=== PATIENT | male | born 1990 | race Caucasian/White ===

== ENCOUNTER 2021-09-27 14:51 | Outpatient (CLI) | payer MEDICAID, SELFPAY ==
--- NOTE | 2021-09-27 14:45 | RT.EKG_ITS ---
APPROVED REPORT Exam: Resting ECG Reason for Exam: fainting Patient Location: O HR:72 bpm ECG Measurements Heart Rate 72 AXIS RI 159 P 52 QRSd 95 QRS 58 QT 383 T 20 QTc 421 Conclusion Sinus rhythm...normal P axis, V-rate 60- 99 ST elev, probable normal early repol pattern...ST elevation, age<55 Normal Electrocardiogram
== END 2021-09-27 14:52 | disposition home or self-care (01) ==
LOC: DI.KIM 14:52
PROVIDERS: Visit Provider Internal Medicine
DX: R55 Syncope and collapse (principal)
CPT/HCPCS: 93010

== ENCOUNTER 2022-04-18 03:02 | Outpatient (CLI) | payer MEDICAID, SELFPAY ==
[2022-04-18 08:17] LABS: Bacteria Negative HPF (Negative); Epithelial Cells Few HPF (Negative); RBC 0-2 HPF (0-2); WBC Negative HPF (0-5)
[2022-04-18 08:18] LABS: C & S Indicated? No; Casts Negative LPF (Negative); Crystals Few Amorphous HPF (Negative); Mucus Moderate (Negative)
[2022-04-18 18:49] LABS: PSA, Screening 0.9 ng/mL (<=2.5)
== END 2022-04-18 03:03 | disposition home or self-care (01) ==
LOC: LBO 03:03
PROVIDERS: PCP Student in an Organized Health Care Education/Training Program; Visit Provider Student in an Organized Health Care Education/Training Program
DX: N40.0 Benign prostatic hyperplasia without lower urinary tract symptoms (principal); Q64.9 Congenital malformation of urinary system, unspecified; Z12.5 Encounter for screening for malignant neoplasm of prostate
CPT/HCPCS: 36415; 84153; 81015

== ENCOUNTER 2022-09-05 03:15 | Outpatient (CLI) | payer MEDICAID, SELFPAY ==
[2022-09-05 08:28] LABS: ALT 31 U/L (16-63); AST 20 U/L (15-37); Albumin 4.2 g/dL (3.4-5.0); Alkaline Phosphatase 64 U/L (46-116); Anion Gap 6.9 mmol/L (3-11); BUN 12 mg/dL (7-18); Bilirubin, Total 0.3 mg/dL (0.2-1.0); CO2 28.1 mmol/L (21.0-32.0); Calcium 8.7 mg/dL (8.5-10.1); Chloride 103 mmol/L (98-107); Estimated GFR 103.84 (mL/min/1.73m2); Glucose 98 mg/dL (74-106); Potassium 3.9 mmol/L (3.5-5.1); Sodium 138 mmol/L (136-145); TSH (W/Ref FT4) 1.88 uIU/mL (0.36-3.74); Total Protein 8.1 g/dL (6.4-8.2)
[2022-09-05 08:49] LABS: Calculated LDL 100 mg/dL (<100); Cholesterol 184 mg/dL (<200); HDL Cholesterol 64 mg/dL (40-60); Triglyceride 100 mg/dL (<150)
== END 2022-09-05 03:16 | disposition home or self-care (01) ==
LOC: LBO 03:15
PROVIDERS: PCP Student in an Organized Health Care Education/Training Program; Visit Provider Student in an Organized Health Care Education/Training Program
DX: Z13.220 Encounter for screening for lipoid disorders (principal); E86.0 Dehydration; K76.9 Liver disease, unspecified; Z91.89 Other specified personal risk factors, not elsewhere classified; F32.9 Major depressive disorder, single episode, unspecified; F33.8 Other recurrent depressive disorders; F39 Unspecified mood [affective] disorder
CPT/HCPCS: 36415; 80053; 80061; 84443

== ENCOUNTER 2023-08-02 01:51 | Emergency (ER) | payer MEDICAID, SELFPAY ==
[2023-08-02] VITALS (11 sets, daily range): BP systolic 129–151; BP diastolic 78–89; PULSE 73–88; RESP 10–26; TEMP 36.4; O2SAT 99
--- NOTE | 2023-08-02 01:45 | RT.EKG_ITS ---
APPROVED REPORT Exam: Resting ECG Reason for Exam: chest pain Patient Location: E HR:78 bpm ECG Measurements Heart Rate 78 AXIS TX 160 P 65 QRSd 105 QRS 77 QT 379 T -18 QTc 434 Conclusion Sinus rhythm...normal P axis, V-rate 60- 99
--- NOTE | 2023-08-02 02:00 | DI.RAD_ITS ---
Exam(s) XR PORTABLE CHEST AP EXAM: XR PORTABLE CHEST AP CLINICAL HISTORY: syncope TECHNIQUE: 2D digital imaging was performed. COMPARISON: No exams were available for comparison FINDINGS: The lung apices are: From view. Leads overlie the chest. LUNGS: Gross clear. No pleural abnormality seen. HEART: Normal size. AORTA: Normal diameter. BONES: Unremarkable for age. Soft tissues: Unremarkable. IMPRESSION: No acute findings. DATA REPOSITORY: RADIATION DOSE DELIVERED:
--- NOTE | 2023-08-02 02:17 | W.ED.GENAD ---
Discharge Plan Disposition Patient Disposition: Home Discharge Details Clinical Impression: Syncope, Chest pain Primary Care Provider: Liliana Hunter ED Provider: Milad Kaminski Home Meds and New Rx's Prescriptions: Continued bupropion HCl [Wellbutrin XL] 150 mg tablet extended release 24 hr 150 mg PO QAM Qty: 90 0RF Rx Instructions: * Take with bupropion 300 mg for total of 450 mg, each morning * bupropion HCl [Wellbutrin XL] 300 mg tablet extended release 24 hr 300 mg PO QAM Qty: 90 1RF Rx Instructions: * Take with bupropion 150 mg for total of 450 mg, each morning * Discharge Instructions Instructions: Chest Pain (ED), Syncope (ED) Additional Instructions: You were seen in the emergency department for chest pain and a fainting episode. We performed labs, EKG, and chest x-ray and these were all unremarkable. You felt better and we agreed it would be okay for you to go home. The exact cause of your symptoms tonight is not known. Follow-up with your primary care doctor as I think that you should wear a Holter monitor or get additional testing as your primary care doctor sees fit. Return to the emergency department if you develop worsening chest pain, shortness of breath, recurrent fainting episodes, or any other symptoms that are worrisome to you. Continue your home medications. Medical Decision Making 33-year-old male presents with chest pain and episode of fainting. Likely represents syncope or presyncope. No clear precipitating cause. Had some chest pain during this. Initial EKG is without signs of ischemia and normal sinus rhythm with no signs of arrhythmia. Doubt ACS but will check cardiac enzymes though if unremarkable would not pursue the diagnosis of acute coronary syndrome further. Will get CBC to look for significant anemia as a cause of syncope. Will get metabolic and electrolyte labs to evaluate for any derangements that could lead to a syncopal episode such as hypoglycemia. Will get chest x-ray to look for pneumonia or pneumothorax. Considered PE but patient meets pulmonary embolism rule out criteria we will not pursue the diagnosis further. Symptom-free now so no role for treatment. Will await initial testing and reevaluate. 0305 Labs, EKG, chest x-ray unremarkable. Still symptom-free. Likely syncope without clear cause. Told patient to follow-up with his primary care doctor for Holter monitor. He is agreeable with this plan. Will discharge with return precautions. Imaging Data Radiologic Study: Attestation: I personally reviewed and interpreted this imaging study as follows: Imaging: X-Ray (chest) My impression: Unremarkable Lab Data Lab results reviewed: Yes I reviewed the patient's lab results. ECG Data Attestation: I personally reviewed and interpreted this ECG (s) as follows: Interpretation: Normal sinus rhythm with a rate of 78. No ischemic changes. Normal SD interval and no ST or T wave changes. Otherwise unremarkable EKG. HPI General Date/Time Provider Initiated Documentation: 08/02/23 01:52. Limitations to Documentation: no limitations. Information obtained by: patient and family. HPI Narrative: 33-year-old male presents with chest pain and syncope. Apparently at home and at around 1 AM started to develop some chest pressure radiating to the left arm. [place] a little sweaty. No shortness of breath. Lasted about 15 minutes and called his dad and walked in the hallway and had a pressure syncopal episode where he got lightheaded and dizzy and weak and fell to the ground. Did not fully lose consciousness. Symptoms improved after this. He was worried and came to the emergency department. No cough or fever. No vomiting or abdominal pain. No leg pain, swelling, or redness. No recent travel or surgeries. No family history of heart attacks less than age 50 or early deaths in the family. Has been well the last few days. Complaint free now and feels better. Related Data Home Medications Medication Instructions Recorded Confirmed bupropion HCl 150 mg 24 hr tablet, 150 mg PO QAM #90 tabs 07/09/23 08/02/23 extended release (Wellbutrin XL) bupropion HCl 300 mg 24 hr tablet, 300 mg PO QAM #90 tabs 07/09/23 08/02/23 extended release (Wellbutrin XL) Previous Rx's Medication Instructions Recorded bupropion HCl 150 mg 24 hr tablet, 150 mg PO QAM #90 tabs 07/09/23 extended release (Wellbutrin XL) bupropion HCl 300 mg 24 hr tablet, 300 mg PO QAM #90 tabs 07/09/23 extended release (Wellbutrin XL) Allergies Allergy/AdvReac Type Severity Reaction Status Date / Time No Known Allergies Allergy Verified 08/02/23 02:00 General Stated Complaint: Chest Pain ASPEN: 2 Review of Systems Constitutional Constitutional: Denies chills, Denies fever(s) and Denies headache(s) Eyes Eyes: Denies change in vision ENT Ears, Nose, Mouth, and Throat: Denies headache(s) and Denies odynophagia Cardiovascular Cardiovascular: Reports chest pain and Denies dyspnea Comments: Presyncope Respiratory Respiratory: Denies dyspnea Gastrointestinal Gastrointestinal: Denies abdominal pain, Denies diarrhea, Reports nausea, Denies odynophagia and Denies vomiting Genitourinary Genitourinary: Denies dysuria Musculoskeletal Musculoskeletal: Denies myalgias Integumentary/Breasts Skin/Breast: Denies changing lesions Neurologic Neurologic: Denies behavioral changes and Denies headache(s) Psychiatric Psychiatric: Denies behavioral changes Endocrine Endocrine: Denies heat intolerance Hematologic/Lymphatic Hematologic/Lymphatic: Denies lymphadenopathy PFSH All Active Problems (Updated 08/02/23 @ 02:22 by Milad Kaminski MD) Chest pain (Acute) Syncope (Chronic) Allergy to insect stings (Acute) SOB (shortness of breath) (Acute) Laceration of left foot (Acute) s/p sutures, removal .. 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 Hx alcohol use. Pscyh [ ] Chronic lower back pain (Acute) Described as a stiffness ... L1-L2 (vs L-Sacral)? Urinary anomaly (Acute) Left forearm pain (Acute) Alcohol dependence (Chronic) GERD (gastroesophageal reflux disease) (Chronic) Surgical History Detached retina 01/13/2016 [facility] [place] Family History Father Cancer Basal Cell Hypertension Celiac disease Maternal Grandmother Cancer Basal Cell, Melanoma metastatic Hypertension Paternal Aunt Hypertension Paternal Grandmother Hypertension Paternal Grandfather Prostate cancer Cancer skin Diabetes Hypertension Alcohol use disorder Mother Hypertension Atrial fibrillation Paternal Uncle Celiac disease Maternal Aunt Hypertension Brother No problems noted. Social History Smoking/Tobacco Use Status: Never Quit status: has quit before (1 year ago) Second Hand Exposure: No Smoking risk assessment performed?: Yes Alcohol Intake: current Alcohol Intake frequency: 3 or more drinks per day Alcohol type: beer and other Drug use: Rarely Substance use type: marijuana Adopted: No Caregiver/Support person: No Foster care: No Household members: family Housing: house Number of Children: 0 number of grandchildren: 0 Communication Needs: Corrective Lenses Education Level: college Details: Bachelor's Degree Do you need help understanding health information?: Rarely current occupation: [employer] Pets and animals: No Sexually active: Yes Do you think of yourself as: straight/heterosexual Current gender identity: male What is your relationship status?: never How often do you talk on the phone with friends or family?: decline to answer How often do you get together with friends or relatives?: decline to answer Do you belong to any clubs or organized social groups?: no Panel score (0-1 are the most socially isolated patients): 0 What type of physical activity do you participate in: regular exercise and other Details: Job is very physical Frequency: 5-6 times per week Alka/Scientologist: None Special alka needs: No Seatbelt use: always Helmet use: Yes Helmet use: sometimes Drive intox or ride w/intox high lift driver: No Working smoke detector in home: Yes Fire extinguisher in home: Yes Do you feel safe at home: Yes Exam Const General: cooperative Nutritional Appearance: average body habitus Orientation: alert, awake and oriented x3 HENMT Head: normal to inspection Ears: external ears normal Mouth: moist mucous membranes Eyes Pupils: PERRL EOM: EOM intact bilaterally and No nystagmus Neck Neck: full ROM and no tracheal deviation Chest Chest: normal inspection of the chest Resp Auscultation: clear to auscultation bilaterally Cardio Rate: regular rate Rhythm: regular rhythm GI Inspection: normal to inspection Palpation: soft, no guarding, not rigid and nontender Back/Spine/Pelvis Back: No no CVA tenderness Thoracic/Lumbar Spine: thoracic and lumbar spine normal to inspection Skin General skin exam: no rashes or lesions noted Neuro General: patient alert, patient awake and patient oriented x3 Cranial Nerves: CN's II-XI intact bilaterally, PERRL and no nystagmus Cognition: normal cognition Motor: muscle tone normal throughout and strength 5/5 throughout Sensory Exam: no sensory deficits noted Extrem General: normal to inspection Course Vital Signs Vital signs: Vital Signs Temperature 36.4 C 08/02/23 01:54 Pulse 79 08/02/23 01:54 Respiratory Rate 19 08/02/23 01:54 Blood Pressure 151/89 H 08/02/23 01:54 Pulse Oximetry 99 08/02/23 01:54 Temperature 36.4 C 08/02/23 01:54 Temperature Source Tympanic 08/02/23 01:54 Pulse 79 08/02/23 01:54 Pulse 75 08/02/23 02:03 Respiratory Rate 13 08/02/23 02:06 Respiratory Effort Normal 08/02/23 02:06 Respiratory Depth Normal 08/02/23 02:06 Respiratory Pattern Normal 08/02/23 02:06 Blood Pressure 151/89 H 08/02/23 01:54 Blood Pressure Position Sitting 08/02/23 01:54 Pulse Oximetry 99 08/02/23 01:54 Oxygen Delivery Method Room Air 08/02/23 02:06 Oxygen Flow Rate 0 08/02/23 02:06 Pain Level 1 08/02/23 02:06
[2023-08-02 02:27] LABS: Abs Immature Grans 0.02 10^3/uL (0.0-0.06); Absolute Monocyte Count 0.93 10^3/uL (0.1-0.8); Absolute Neutrophil Count 6.42 10^3/uL (1.2-6.7); Basophils % 0.5; Eosinophils % 4.5; HGB 15.1 g/dL (13.5-17.5); Immature Grans % 0.2; Lymphocytes % 28.1; MCH 29.6 pg (27.0-33.0); MCHC 33.6 % (32.0-36.0); MCV 88 fL (80-95); MPV 9.6 fL (8.0-11.0); Monocytes % 8.4; Neutrophils % 58.3; Platelet Count 222 10^3/uL (130-400); RDW 12.3 % (11.8-14.1); RDW-SD 40.1 fL; WBC 11.02 10^3/uL (4.4-10.8)
[2023-08-02 02:28] LABS: Absolute Basophil Count 0.06 10^3/uL (0.0-0.2)
[2023-08-02 02:50] LABS: ALT 63 U/L (16-63); AST 17 U/L (15-37); Albumin 3.8 g/dL (3.4-5.0); Alkaline Phosphatase 67 U/L (46-116); Anion Gap 8.4 mmol/L (3-11); BUN 10 mg/dL (7-18); Bilirubin, Total 0.3 mg/dL (0.2-1.0); CO2 28.6 mmol/L (21.0-32.0); CREATININE 1.1 mg/dL (0.70-1.30); Calcium 8.8 mg/dL (8.5-10.1); Chloride 103 mmol/L (98-107); Estimated GFR 92.04 (mL/min/1.73m2); Glucose 141 mg/dL (74-106); Magnesium 2.1 mg/dL (1.8-2.4); Potassium 3.5 mmol/L (3.5-5.1); Sodium 140 mmol/L (136-145); Total Protein 7.7 g/dL (6.4-8.2); Troponin I < 50 ng/L (<or=60)
--- NOTE | 2023-08-02 03:56 | DI.VRAD_ITS ---
PROCEDURE INFORMATION: Exam: XR Chest Exam date and time: 08/02/2023 2:56 AM Age: 33 years old Clinical indication: Other: Syncope TECHNIQUE: Imaging protocol: Radiologic exam of the chest. Views: 1 view. COMPARISON: No relevant prior studies available. FINDINGS: Limitations: Cardiac monitoring leads overlie the exam. The extreme lung apices are excluded from view. Lungs: No pulmonary consolidation is seen. Pleural spaces: Within the limits of the exam, no pleural effusion or pneumothorax is seen; however, the pulmonary apices are excluded from view. Heart/Mediastinum: Heart size is normal. Bones/joints: The visualized bony structures appear grossly intact, as seen. IMPRESSION: No active disease is seen in the chest. Dictated and Authenticated by: Abelino Peña MD. Ordering:STANLEY Stinson MD
== END 2023-08-02 03:20 | disposition home or self-care (01) ==
LOC: ER 03:23
PROVIDERS: Emergency Provider Student in an Organized Health Care Education/Training Program; PCP Student in an Organized Health Care Education/Training Program
DX: R07.9 Chest pain, unspecified (principal); R55 Syncope and collapse; Z82.49 Family history of ischemic heart disease and other diseases of the circulatory system
CPT/HCPCS: 80053; 93005; 99283; 71045; 83735; 84484; 85025; 93010

== ENCOUNTER 2023-12-26 05:19 | Outpatient (CLI) | payer MEDICAID, SELFPAY ==
[2023-12-26 15:50] LABS: ALT 54 U/L (16-63); AST 19 U/L (15-37); Albumin 4.2 g/dL (3.4-5.0); Alkaline Phosphatase 62 U/L (46-116); Anion Gap 8.5 mmol/L (3-11); BUN 11 mg/dL (7-18); Bilirubin, Total 0.4 mg/dL (0.2-1.0); CO2 28.5 mmol/L (21.0-32.0); CREATININE 0.9 mg/dL (0.70-1.30); Calcium 9.1 mg/dL (8.5-10.1); Chloride 105 mmol/L (98-107); Glucose 86 mg/dL (74-106); Magnesium 2.1 mg/dL (1.8-2.4); Potassium 3.7 mmol/L (3.5-5.1); Sodium 142 mmol/L (136-145)
[2023-12-27 19:34] LABS: HIV-1/2 Ag & Ab Screen Negative (Negative)
== END 2023-12-26 05:20 | disposition home or self-care (01) ==
LOC: LBO 05:19
PROVIDERS: PCP Student in an Organized Health Care Education/Training Program; Visit Provider Student in an Organized Health Care Education/Training Program
DX: K21.9 Gastro-esophageal reflux disease without esophagitis (principal); N40.0 Benign prostatic hyperplasia without lower urinary tract symptoms; N28.9 Disorder of kidney and ureter, unspecified; Z20.2 Contact with and (suspected) exposure to infections with a predominantly sexual mode of transmission
CPT/HCPCS: 36415; 80053; 87389; 83735

== ENCOUNTER 2024-02-14 11:15 | Outpatient (CLI) | payer MEDICAID, SELFPAY ==
--- NOTE | 2024-02-14 12:23 | W.CARDEVENT ---
Date of service: 02/14/24 Time of Service: 12:23 Cardiac Event Recorder Referring Provider:: Liliana Hunter Indications:: Cardiac arrhythmia Cardiac Event Note: This is a cardiac event monitor. Patient was monitored for 13 days and 18 hours Rhythm throughout was sinus with an average heart rate of 60. Minimum was 35, maximum 173 There were very rare isolated atrial and ventricular ectopic beats. There was no atrial fibrillation, no high-grade block, no pauses greater than 3 seconds Patient symptoms were reported which correlated to sinus rhythm
== END 2024-02-14 11:16 | disposition home or self-care (01) ==
LOC: CARDOPNVT 11:15
PROVIDERS: PCP Student in an Organized Health Care Education/Training Program; Visit Provider Internal Medicine Cardiovascular Disease
DX: I49.8 Other specified cardiac arrhythmias (principal)
CPT/HCPCS: 93246

== ENCOUNTER 2024-03-06 01:07 | Outpatient (CLI) | payer MEDICAID, SELFPAY ==
[2024-03-06 12:07] LABS: Bacteria Rare HPF (Negative); C & S Indicated? No; Casts Negative LPF (Negative); Crystals Negative HPF (Negative); Epithelial Cells Rare HPF (Negative); Mucus Negative (Negative); RBC Negative HPF (0-2); WBC Negative HPF (0-5)
[2024-03-06 12:11] LABS: TSH (W/Ref FT4) 1.69 uIU/mL (0.36-3.74)
[2024-03-07 10:06] LABS: PSA, Screening 0.7 ng/mL (<=2.5)
[2024-03-10 21:18] LABS: Wasp Venom IgE 0.28 kU/L (<0.70); White Faced Hornet Venom IgE <0.10 kU/L (<0.70)
[2024-03-11 15:51] LABS: CLASS 0; Venom Bumble Bee IgE <0.10 kU/L (<0.35)
[2024-03-12 14:40] LABS: Testosterone, Free 11.9 ng/dL (4.85-19.0); Testosterone, Total 453 ng/dL (240-950)
== END 2024-03-06 01:08 | disposition home or self-care (01) ==
LOC: LBO 01:07
PROVIDERS: Physician Assistant; PCP Student in an Organized Health Care Education/Training Program; Visit Provider Student in an Organized Health Care Education/Training Program
DX: R06.02 Shortness of breath (principal); Z91.038 Other insect allergy status; N39.9 Disorder of urinary system, unspecified; I49.8 Other specified cardiac arrhythmias; R07.89 Other chest pain; Q38.6 Other congenital malformations of mouth; F39 Unspecified mood [affective] disorder; F32.4 Major depressive disorder, single episode, in partial remission
CPT/HCPCS: 36415; 84153; 84402; 84403; 86003; 81015; 84443

== ENCOUNTER 2025-02-27 17:23 | Emergency (ER) | payer MEDICAID, SELFPAY ==
[2025-02-27 17:26] VITALS: BP 146/84; PULSE 78; RESP 16; TEMP 36.6; O2SAT 98
--- NOTE | 2025-02-27 18:40 | W.ED.GENAD ---
Discharge Plan Disposition Patient Disposition: Home Condition: Good Discharge Details Clinical Impression: Laceration of left index finger Primary Care Provider: Liliana Hunter ED Provider: Franco Wilde Home Meds and New Rx's Prescriptions: No Action epinephrine [EpiPen] 0.3 mg/0.3 mL auto-injector 0.3 mg IM ONCE Qty: 2 6RF Rx Instructions: as a single dose; may repeat once sertraline 100 mg tablet 100 mg PO DAILY Qty: 90 1RF lisdexamfetamine [Vyvanse] 40 mg capsule 40 mg PO QAM MDD 40 mg Qty: 28 0RF Discharge Instructions Instructions: Laceration Repair With Stitches ED Additional Instructions: Please keep the area clean and dry. Monitor closely for any redness, drainage or discharge. For nonabsorbable sutures, please return in 7 to 10 days to have the wound reassessed and the sutures removed. If you come back to the emergency department here it will be free of charge for the suture removal. For long-term scar cosmesis, please make sure to avoid any sun to the area for the next year. Apply moisturizer or vitamin E to the area twice daily for the next 12 months for the best chance of wound/scar medication. Please take a daily multivitamin as well as this can help in wound healing. If you notice any worsening of your symptoms, or any new symptoms such as vomiting, diarrhea, fever, chills, shortness of breath, chest pain, numbness, weakness, or fainting , please return immediately to the emergency department for reevaluation. Please follow up with your primary care provider as soon as possible for reassessment and reevaluation. As always, it was a pleasure participating in your medical care today. Referrals: Lliiana Hunter DO [Primary Care Provider, Medicine] Discharge Data Discharge Date/Time-TO BE ENTERED AT DEPARTURE: 02/27/25 18:48 HPI General Date/Time Provider Initiated Documentation: 02/27/25 17:41. HPI Narrative: This is a pleasant 34-year-old male whose tetanus was updated 6 years ago, with no other significant past medical history who presents today for evaluation of laceration to his nondominant hand on the left index finger. He states that he was cutting some food products with a clean knife, but it slipped and sliced the top part of his finger. He immediately applied pressure and came to the ER for management of laceration. He has diminished sensation on the lacerated area where the tip of his finger was cut off, but denies any other complaints. No difficulty with movement of the finger. No other modifying factors. Related Data Home Medications ?Medication ?Instructions ?Recorded ?Confirmed sertraline 100 mg tablet 100 mg PO DAILY #90 tabs 10/27/24 02/27/25 epinephrine 0.3 mg/0.3 mL 0.3 mg (0.3 mL) IM ONCE #2 ea 10/28/24 02/27/25 injection, auto-injector (EpiPen) lisdexamfetamine 40 mg capsule 40 mg PO QAM #28 caps 02/17/25 02/27/25 (Vyvanse) Previous Rx's ?Medication ?Instructions ?Recorded sertraline 100 mg tablet 100 mg PO DAILY #90 tabs 10/27/24 epinephrine 0.3 mg/0.3 mL 0.3 mg (0.3 mL) IM ONCE #2 ea 10/28/24 injection, auto-injector (EpiPen) lisdexamfetamine 40 mg capsule 40 mg PO QAM #28 caps 02/17/25 (Vyvanse) Allergies Allergy/AdvReac Type Severity Reaction Status Date / Time venom-wasp Allergy Severe Anaphylaxis Verified 02/27/25 17:27 yellow jacket venom Allergy Severe Anaphylaxis Uncoded 02/27/25 17:27 General Stated Complaint: Laceration ASPEN: 4 Exam Narrative Exam Narrative: 1.Const: Well-nourished, Well-developed, appearing stated age 2.Eyes: PERRL, no conjunctival injection, and symmetrical lids. 3.ENT: Atraumatic external nose and ears. Moist MM. Neck: Symmetric, trachea midline, No thyromegaly. 4.CVS: +S1/S2, Peripheral pulses 2+ and equal in all extremities. Brisk capillary refill in all extremities. 5.RESP: Unlabored respiratory effort. Clear to auscultation bilaterally. No wheezes rales or rhonchi 6.GI: Soft, Nontender/Nondistended, No hepatosplenomegaly. No guarding or rebound. 7.MSK: Normocephalic, Extremities w/o deformity or ttp No cyanosis or clubbing, Normal movement of all extremities, patient does have a laceration to the distal tip of his left index finger, however he demonstrates excellent flexion and extension, brisk capillary refill is noted active bleeding from the laceration site. Laceration itself is a crescent shaped laceration over the distal pad of his finger at about 2-1/2 cm total length. Laceration involves the pad of the finger, but does not show any evidence of involvement to the tendons. 8.Skin: Warm, Dry. No rashes or lesions. Please see musculoskeletal 9.Neuro: manager beauty II-XII grossly intact. Sensation grossly intact, no focal neurologic deficits. Obvious absent sensation to the lacerated skin on the tip. 10.Psych: (AAO) x3. Appropriate mood and affect Course Vital Signs Vital signs: Vital Signs Temperature 36.6 C 02/27/25 17:26 Pulse 78 02/27/25 17:26 Respiratory Rate 16 02/27/25 17:26 Blood Pressure 146/84 H 02/27/25 17:26 Pulse Oximetry 98 02/27/25 17:26 Temperature 36.6 C 02/27/25 17:26 Pulse 78 02/27/25 17:26 Respiratory Rate 16 02/27/25 17:26 Blood Pressure 146/84 H 02/27/25 17:26 Pulse Oximetry 98 02/27/25 17:26 Pain Level 4 02/27/25 17:26 Procedure Laceration Laceration 1: Date of Procedure: 02/27/25 Time of procedure: 16:06 Provider that performed the procedure: Franco Wilde Standard Time Out Performed: Yes Patient Consented: Verbally Site: hand (Left index finger distal tip) Side (If applicable): left Description: linear ([place]-shaped) and flap Depth: simple, single layer Local anesthetic: Lidocaine 1% Amount of anesthesia used (mL): 4 Pre-repair:: wound explored, irrigated extensively and deep structures intact Skin layer closed with: nylon Suture size: 5-0 Number of sutures:: 5 Technique: simple, interrupted Medical Decision Making This is a pleasant 34-year-old male whose tetanus was updated 6 years ago, with no other significant past medical history who presents today for evaluation of laceration to his nondominant hand on the left index finger. He states that he was cutting some food products with a clean knife, but it slipped and sliced the top part of his finger. He immediately applied pressure and came to the ER for management of laceration. He has diminished sensation on the lacerated area where the tip of his finger was cut off, but denies any other complaints. No difficulty with movement of the finger. No other modifying factors. Laceration was anesthetized, ring tourniquet was applied, the area was cleaned, and then sutured with 5 simple interrupted sutures using 5-0 Ethilon. Patient tolerated the procedure well. No complications. Removal of tourniquet revealed excellent distal blood flow. Discussed red flags for which to return. Tetanus is still within 10 years, no indication for renewal at this time. I have extensively reviewed the treatment plan and discharge instructions with the patient. I have addressed all patient concerns at this time. The patient was made aware of what symptoms to monitor for that would warrant a return to the emergency department. Discussed the plan with the patient, they demonstrate verbal understanding and agreement with our assessment and plan at this time. The documentation in this chart was dictated using [employer] dictation software. Please excuse any dictation errors. 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 SOB (shortness of breath) (Acute) Laceration of left foot (Acute) s/p sutures, removal .. 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 Hx alcohol use. Pscyh [ ] Chronic lower back pain (Acute) Described as a stiffness ... L1-L2 (vs L-Sacral)? Urinary anomaly (Acute) Left forearm pain (Acute) Alcohol dependence (Chronic) Abstaining, improved in general (1-2 drinks for social) GERD (gastroesophageal reflux disease) (Chronic) Surgical History Detached retina 01/13/2016 [facility] [place] Family History Father Cancer Basal Cell Hypertension Celiac disease Maternal Grandmother Cancer Basal Cell, Melanoma metastatic Hypertension Paternal Aunt Hypertension Paternal Grandmother Hypertension Paternal Grandfather Prostate cancer Cancer skin Diabetes Hypertension Alcohol use disorder Mother Hypertension Atrial fibrillation Paternal Uncle Celiac disease Maternal Aunt Hypertension Brother No problems noted. Social History Smoking/Tobacco Use Status: Former Tobacco Use Tobacco: How many years used: 2 Quit status: has quit before Second Hand Exposure: No Smoking risk assessment performed?: Yes Alcohol Intake: current Alcohol Intake frequency: 3 or more drinks per day Alcohol type: beer and other Drug use: Rarely Substance use type: marijuana Adopted: No Caregiver/Support person: No Foster care: No Household members: family Housing: house Number of Children: 0 number of grandchildren: 0 Communication Needs: Corrective Lenses Education Level: college Details: Bachelor's Degree Do you need help understanding health information?: Rarely current occupation: [employer] Pets and animals: No Sexually active: Yes Do you think of yourself as: straight/heterosexual Current gender identity: male What is your relationship status?: never How often do you talk on the phone with friends or family?: decline to answer How often do you get together with friends or relatives?: decline to answer Do you belong to any clubs or organized social groups?: no Panel score (0-1 are the most socially isolated patients): 0 What type of physical activity do you participate in: regular exercise and other Details: Job is very physical Frequency: 5-6 times per week Alka/Worship: None Special alka needs: No Seatbelt use: always Helmet use: Yes Helmet use: sometimes Drive intox or ride w/intox maintenance truck driver: No Working smoke detector in home: Yes Fire extinguisher in home: Yes Do you feel safe at home: Yes
== END 2025-02-27 18:48 | disposition home or self-care (01) ==
PROVIDERS: Emergency Provider Student in an Organized Health Care Education/Training Program; PCP Student in an Organized Health Care Education/Training Program
DX: S61.211A Laceration without foreign body of left index finger without damage to nail, initial encounter (principal); W26.0XXA Contact with knife, initial encounter
CPT/HCPCS: 12001

== ENCOUNTER 2025-03-06 21:38 | Emergency (ER) | payer MEDICAID, SELFPAY ==
[2025-03-06 22:18] VITALS: BP 148/82; PULSE 81; RESP 16; O2SAT 98
--- NOTE | 2025-03-06 22:24 | W.ED.GENAD ---
Discharge Plan Discharge Details Chief Complaint: Recheck Primary Care Provider: Liliana Hnuter ED Provider: Franco Wilde Home Meds and New Rx's Prescriptions: No Action epinephrine [EpiPen] 0.3 mg/0.3 mL auto-injector 0.3 mg IM ONCE Qty: 2 6RF Rx Instructions: as a single dose; may repeat once sertraline 100 mg tablet 100 mg PO DAILY Qty: 90 1RF lisdexamfetamine [Vyvanse] 40 mg capsule 40 mg PO QAM MDD 40 mg Qty: 28 0RF HPI General Date/Time Provider Initiated Documentation: 03/06/25 22:14. HPI Narrative: 34-year-old male returns for suture removals. Patient had laceration to his index finger on 02/27, he returns to have it removed. Sensation has been mildly returning on the distal tip of the lacerated skin. No other complaints otherwise. Related Data Home Medications ?Medication ?Instructions ?Recorded ?Confirmed sertraline 100 mg tablet 100 mg PO DAILY #90 tabs 10/27/24 03/06/25 epinephrine 0.3 mg/0.3 mL 0.3 mg (0.3 mL) IM ONCE #2 ea 10/28/24 03/06/25 injection, auto-injector (EpiPen) lisdexamfetamine 40 mg capsule 40 mg PO QAM #28 caps 02/17/25 03/06/25 (Vyvanse) Previous Rx's ?Medication ?Instructions ?Recorded sertraline 100 mg tablet 100 mg PO DAILY #90 tabs 10/27/24 epinephrine 0.3 mg/0.3 mL 0.3 mg (0.3 mL) IM ONCE #2 ea 10/28/24 injection, auto-injector (EpiPen) lisdexamfetamine 40 mg capsule 40 mg PO QAM #28 caps 02/17/25 (Vyvanse) Allergies Allergy/AdvReac Type Severity Reaction Status Date / Time venom-wasp Allergy Severe Anaphylaxis Verified 03/06/25 22:19 yellow jacket venom Allergy Severe Anaphylaxis Uncoded 03/06/25 22:19 General Stated Complaint: Recheck ASPEN: 4 Exam Narrative Exam Narrative: Finger is clean dry and intact, excellent wound edge reapproximation. No active hemorrhage. Brisk capillary refill. Sensation is intact distally. Course Vital Signs Vital signs: Vital Signs Pulse 81 03/06/25 22:18 Respiratory Rate 16 03/06/25 22:18 Blood Pressure 148/82 H 03/06/25 22:18 Pulse Oximetry 98 03/06/25 22:18 Temperature Source Temporal Artery Scan 03/06/25 22:18 Pulse 81 03/06/25 22:18 Respiratory Rate 16 03/06/25 22:18 Blood Pressure 148/82 H 03/06/25 22:18 Pulse Oximetry 98 03/06/25 22:18 Medical Decision Making Finger is clean dry and intact, excellent wound edge reapproximation. No active hemorrhage. Brisk capillary refill. Sensation is intact distally. Sutures were removed. Vital signs stable. No evidence of infection or neurovascular compromise. Patient will be discharged home. I have extensively reviewed the treatment plan and discharge instructions with the patient. I have addressed all patient concerns at this time. The patient was made aware of what symptoms to monitor for that would warrant a return to the emergency department. Discussed the plan with the patient, they demonstrate verbal understanding and agreement with our assessment and plan at this time. The documentation in this chart was dictated using [employer] dictation software. Please excuse any dictation errors. Quality:SDOH Health Related Social Needs: Health related social needs details TBD PFSH All Active Problems (Updated 02/27/25 @ 18:41 by Franco Wilde DO) Laceration of left index finger (Acute) Traumatic subungual hemorrhage of toe of left foot (Acute) Umbilical granuloma (Acute) Allergic reaction to wasp sting (Acute) Allergies (Acute) Depression (Chronic) Aberrant frenulum or muscle position of mouth (Acute) Atypical chest pain (Acute) Fluttering heart (Acute) Urologic disorder (Acute) Family history of cardiac disorder in father (Acute) triple bypass @ [facility] [place], [place] 2022 (~ 68yo) Allergy to insect stings (Acute) Wasps & Yellow Jackets. SOB (shortness of breath) (Acute) Laceration of left foot (Acute) s/p sutures, removal .. 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 Hx alcohol use. Pscyh [ ] Chronic lower back pain (Acute) Described as a stiffness ... L1-L2 (vs L-Sacral)? Urinary anomaly (Acute) Left forearm pain (Acute) Alcohol dependence (Chronic) Abstaining, improved in general (1-2 drinks for social) GERD (gastroesophageal reflux disease) (Chronic) Surgical History Detached retina 01/13/2016 [facility] – [place] Family History Father Cancer Basal Cell Hypertension Celiac disease Maternal Grandmother Cancer Basal Cell, Melanoma metastatic Hypertension Paternal Aunt Hypertension Paternal Grandmother Hypertension Paternal Grandfather Prostate cancer Cancer skin Diabetes Hypertension Alcohol use disorder Mother Hypertension Atrial fibrillation Paternal Uncle Celiac disease Maternal Aunt Hypertension Brother No problems noted. Social History Smoking/Tobacco Use Status: Former Tobacco Use Tobacco: How many years used: 2 Quit status: has quit before Second Hand Exposure: No Smoking risk assessment performed?: Yes Alcohol Intake: current Alcohol Intake frequency: 3 or more drinks per day Alcohol type: beer and other Drug use: Rarely Substance use type: marijuana Adopted: No Caregiver/Support person: No Foster care: No Household members: family Housing: house Number of Children: 0 number of grandchildren: 0 Communication Needs: Corrective Lenses Education Level: college Details: Bachelor's Degree Do you need help understanding health information?: Rarely current occupation: [employer] Pets and animals: No Sexually active: Yes Do you think of yourself as: straight/heterosexual Current gender identity: male What is your relationship status?: never How often do you talk on the phone with friends or family?: decline to answer How often do you get together with friends or relatives?: decline to answer Do you belong to any clubs or organized social groups?: no Panel score (0-1 are the most socially isolated patients): 0 What type of physical activity do you participate in: regular exercise and other Details: Job is very physical Frequency: 5-6 times per week Alka/Cheondoism: None Special alka needs: No Seatbelt use: always Helmet use: Yes Helmet use: sometimes Drive intox or ride w/intox tractor trailer moving van driver: No Working smoke detector in home: Yes Fire extinguisher in home: Yes Do you feel safe at home: Yes
== END 2025-03-06 22:24 | disposition home or self-care (01) ==
LOC: ER 22:20
PROVIDERS: Emergency Provider Student in an Organized Health Care Education/Training Program; PCP Student in an Organized Health Care Education/Training Program
DX: Z48.02 Encounter for removal of sutures (principal)